=== PATIENT | female | born 1985 | race Caucasian/White ===

== ENCOUNTER 2022-04-21 13:30 | Day surgery (SDC) | payer MEDICAID ==
[2022-04-21] VITALS (10 sets, daily range): BP systolic 111–139; BP diastolic 63–85
[~2022-04-21] VITALS: Ht 162.6 cm; Wt 124.6 kg
[~2022-04-21 13:30] MED LIST: ALBU8.5H17 INH; ESOM40CA PO; FERR-119 PO; INDOCYANINE GREEN 25 MG/10 ML VIAL IV ONE; [UNRECOGNIZED DRUG - CODE] PO; famotidine 20mg tablet PO ONE; ringers solution, lacted 1,000 ML IV SCH
[2022-04-21] MEDS ORDERED: clindamycin-Cleocin 900mg/D5W 50 ML IV ONE (14:27)
[2022-04-21] MEDS ORDERED: INDOCYANINE GREEN 25 MG/10 ML VIAL IV ONE (14:27)
[2022-04-21] MEDS ORDERED: gentamicin inj 410 MG in normal saline 100ml IV soln 89.75 ML IV ONE (14:57)
[2022-04-21] MEDS ORDERED: fentaNYL/PF 50MCG/1 ML 2ML syringe ONE (15:55)
[2022-04-21] MEDS ORDERED: rocuronium 10mg/ml inj IV ONE (15:56)
[2022-04-21] MEDS ORDERED: propofol inj 20 ML IV ONE (15:56)
[2022-04-21] MEDS ORDERED: LIDOcaine 1%/PF 5ML 10 MG/ML VIAL ONE (15:56)
[2022-04-21] MEDS ORDERED: midazolam 1 mg/ML 2ml injection ONE (15:56)
[2022-04-21] MEDS ORDERED: glycopyrrolate 0.2mg/ml inj ONE (15:57)
[2022-04-21] MEDS ORDERED: neostigmine methylsulfate 1 MG/ML 10ml vial ONE (15:57)
[2022-04-21] MEDS ORDERED: ringers solution, lacted 1,000 ML IV SCH (16:00)
[2022-04-21] MEDS ORDERED: morphine 2 MG/ML inj. syringe IV PRN (16:00)
[2022-04-21] MEDS ORDERED: ondansetron/PF 4mg/2ml inj IV PRN (16:00)
[2022-04-21] MEDS ORDERED: labetalol 20mg/4ml (5mg/ml) syringe IV PRN (16:00)
[2022-04-21] MEDS ORDERED: fentaNYL/PF 50MCG/1 ML 2ML syringe IV PRN ×2 (16:00)
[2022-04-21] MEDS ORDERED: hydrALAZINE 20mg/ml inj. IV PRN (16:00)
[2022-04-21] MEDS ORDERED: BUPIVAcaine/PF 2.5 mg/ml (0.25%) 30ml vial ONE (16:05)
[2022-04-21] MEDS ORDERED: ondansetron/PF 4mg/2ml inj ONE (16:33)
--- NOTE | 2022-04-21 17:45 | NUR ---
PT ARRIVED TO [facility] VIA [facility] ACCOMPANIED BY DR CLARK-ANESTHESIA REPORT GIVEN, PT WAKING UP, VSS, C/O ABD PAIN-PAIN MEDS BEING OBTAINED, 4 LAP SITES-CDI, PIV LEFT HAND 20G, SCDS ON.
[2022-04-21] MEDS: morphine 4 MG/ML inj SYRINge IV PRN ×2 (17:48→18:08)
[2022-04-21] MEDS ORDERED: HYDROcodone/acetaminophen 10/325mg tab PO ONE (18:05)
[2022-04-21] MEDS ORDERED: acetaminophen 1,000mg/100ml IV 100 ML IV ONE (18:10)
--- NOTE | 2022-04-21 19:25 | NUR ---
PT IS UP AND ABLE TO GET DRESSED, LAP SITES-CDI, PT GIVEN 1 NORCO FOR PAIN FOR TRIP HOME, VSS, D/C INSTRUCTIONS GIVEN TO PT-ALL QUESTIONS ANSWERED, TAKEN VIA W/C WITH ALL BELONGINGS TO VEHICLE FOR TRANSPORT HOME.
== END 2022-04-21 19:25 | disposition home or self-care (01) ==
LOC: PAS 13:30
PROVIDERS: ATTEND Surgery
DX: K80.10 Calculus of gallbladder with chronic cholecystitis without obstruction (principal); F41.8 Other specified anxiety disorders; Z79.899 Other long term (current) drug therapy; Z98.890 Other specified postprocedural states; Z88.0 Allergy status to penicillin; Z88.2 Allergy status to sulfonamides; Z87.891 Personal history of nicotine dependence
CPT/HCPCS: 47562; 82948; A6258; J0131; J2250; J2270; J2405; J2704; J2710; J3010; J3490; J7030; J7120; Z7506; Z7508; Z7512; A4215; A4618; A7000